=== PATIENT | male | born 1960 | race Caucasian/White ===

== ENCOUNTER 2020-11-28 09:46 | Day surgery (SDC) | payer OTHER ==
[~2020-11-28] VITALS: Ht 172.7 cm; Wt 96.9 kg
[~2020-11-28 09:46] MED LIST: IBUP400 PO; LISI20 PO
--- NOTE | 2020-11-28 11:17 | NUR ---
11/28/20 1117 Eugenia Cortes 1MG EPI INJECTED INTO FIRST 3 3000ML BAGS OF LR FOR IRRIGATION PURPOSES PER DOCTOR ORDER
== END 2020-11-28 12:37 | disposition home or self-care (01) ==
LOC: ORSCSDS 09:46
PROVIDERS: Orthopaedic Surgery
PROC: 0SBC4ZZ Excision of Right Knee Joint, Percutaneous Endoscopic Approach (ICD-10-PCS; principal; 2020-11-28 11:15)
DX: S83.241A Other tear of medial meniscus, current injury, right knee, initial encounter (principal); S83.281A Other tear of lateral meniscus, current injury, right knee, initial encounter; M25.861 Other specified joint disorders, right knee; M17.11 Unilateral primary osteoarthritis, right knee; I10 Essential (primary) hypertension
CPT/HCPCS: J0171; J0690; J1100; J1885; J2250; J2405; J2704; J2795; J3010; J7120

== ENCOUNTER 2021-07-26 06:20 | Day surgery (SDC) | payer OTHER ==
[~2021-07-26] VITALS: Ht 172.7 cm; Wt 94.5 kg
== END 2021-07-26 09:55 | disposition home or self-care (01) ==
LOC: ORSCSDS 06:20
PROVIDERS: Surgery
PROC: 0JBD0ZZ Excision of Right Upper Arm Subcutaneous Tissue and Fascia, Open Approach (ICD-10-PCS; principal; 2021-07-26 07:30)
DX: D17.21 Benign lipomatous neoplasm of skin and subcutaneous tissue of right arm (principal); I10 Essential (primary) hypertension; E78.5 Hyperlipidemia, unspecified
CPT/HCPCS: 88304; J0690; J1100; J1885; J2250; J2405; J2704; J3010; J7120